=== PATIENT | male | born 1960 | race American Indian/Alaskan Native ===

== ENCOUNTER → 2017-01-22 | Outpatient (CLI) | payer BC ==
[~2017-01-22] MED LIST: IOHEXOL 350 MG/ML 150 ML (OMNIPAQUE 350) VIAL IV ONE; NS 100 ML (IVPB) BAG IV ONE
[2017-01-22 12:22] LABS: BLOOD UREA NITROGEN 12 MG/DL (7-18); BUN/CREATININE RATIO 14; CREATININE SERUM 0.84 MG/DL (0.60-1.30); GFR ESTIMATED > 60
--- NOTE | 2017-01-22 12:49 | Diagnostic Imaging Report ---
PA and lateral views of the chest. INDICATION: Chronic cough and shortness of breath. FINDINGS: There is interstitial thickening seen which could be chronic. No previous studies are available for comparison. There are relatively low lung volumes noted. The heart size is normal. No effusion or pneumothorax. The mediastinum and paula appear unremarkable. IMPRESSION: Low lung volumes with likely chronic interstitial thickening, worse in the lung bases. HRCT evaluation could be helpful. Dictated by: Dictated on workstation # [id number]
--- NOTE | 2017-01-22 13:02 | Diagnostic Imaging Report ---
PROCEDURE: CT angiography of the chest with contrast. TECHNIQUE: Multiple contiguous axial images were obtained through the chest after uneventful bolus administration of intravenous contrast. Reconstructed CTA MIP acquisitions were also performed. INDICATION: Difficulty breathing with shortness of air. FINDINGS: There are no intraluminal pulmonary arterial filling defects, no findings of pulmonary arterial embolus. The thoracic aorta is patent and nonaneurysmal. There is no pleural or pericardial effusion. There are fibrotic changes in the lungs, predominantly in a peripheral and subpleural distribution, most notably in the lung bases but also involving both apices. No jeff alveolar consolidation. No substantial bronchiectasis. No bullous disease, blebs or significant air cysts. The visualized upper abdomen showed a fatty liver with no acute appearing abnormality. IMPRESSION: Negative for PE. There is substantial 5 lobe chronic peripheral interstitial lung disease with basilar and apical subpleural fibrosis and honeycombing. Nonacute patent aorta. Small hiatal hernia and mild hepatic steatosis. Dictated by: Dictated on workstation # [id number]
== END ==
LOC: RAD 11:54
PROVIDERS: ATTEND Nurse Practitioner Family
DX: J84.10 Pulmonary fibrosis, unspecified (principal); J98.4 Other disorders of lung; K44.9 Diaphragmatic hernia without obstruction or gangrene; K76.0 Fatty (change of) liver, not elsewhere classified
CPT/HCPCS: 36415; 71020; 71275; 82565; 84520

== ENCOUNTER → 2017-01-30 | Outpatient (CLI) | payer BC ==
[~2017-01-30] MED LIST changes: -IOHEXOL 350 MG/ML 150 ML (OMNIPAQUE 350) VIAL IV ONE; -NS 100 ML (IVPB) BAG IV ONE; +RT-ALBUTEROL SULF 2.5 MG/3 ML PRE-MIX VIAL INH ONE
== END ==
LOC: RT 12:43
PROVIDERS: ATTEND Nurse Practitioner Family
DX: R05 Cough (principal); R06.02 Shortness of breath
CPT/HCPCS: 94060; 94726; 94729

== ENCOUNTER → 2017-03-05 | Outpatient (CLI) | payer BC ==
[~2017-03-05] MED LIST changes: +ASPI-999 PO; +CLOP75TA28 PO; +FLUT1BLS IH; +HYDR25TA4 PO; +LISI-552 PO; +OMEP40CA36 PO; +ROSU40TA21 PO; +RT-ALBUINH IH; -RT-ALBUTEROL SULF 2.5 MG/3 ML PRE-MIX VIAL INH ONE; +TRAM50TA2 PO
[2017-03-05 12:45] LABS: BASOPHILS % (AUTO) 0 % (0-10); EOSINOPHILS # (AUTO) 0.3 10^3/uL (0.0-0.3); EOSINOPHILS % (AUTO) 4 % (0-10); HEMATOCRIT 46 % (40-54); HEMOGLOBIN 16.4 G/DL (13.3-17.7); LYMPHOCYTES # (AUTO) 1.7 X 10^3 (1.0-4.0); LYMPHOCYTES % (AUTO) 21 % (12-44); MEAN CORPUSCULAR HEMOGLOBIN 33 PG (25-34); MEAN CORPUSCULAR HGB CONC 36 G/DL (32-36); MEAN CORPUSCULAR VOLUME 91 FL (80-99); MONOCYTES # (AUTO) 0.9 X 10^3 (0.0-1.0); MONOCYTES % (AUTO) 12 % (0-12); NEUTROPHILS % (AUTO) 63 % (42-75); PLATELET COUNT 202 10^3/uL (130-400); RED BLOOD COUNT 5.01 10^6/uL (4.35-5.85); RED CELL DISTRIBUTION WIDTH 12.4 % (10.0-14.5); WHITE BLOOD COUNT 7.9 10^3/uL (4.3-11.0)
[2017-03-05 13:05] LABS: ALANINE AMINOTRANSFERASE 23 U/L (0-55); ALBUMIN 4.1 GM/DL (3.2-4.5); ALKALINE PHOSPHATASE 81 U/L (40-136); BILIRUBIN,TOTAL 0.3 MG/DL (0.1-1.0); BUN/CREATININE RATIO 16; CALCIUM 9.3 MG/DL (8.5-10.1); CARBON DIOXIDE 22 MMOL/L (21-32); CHLORIDE 104 MMOL/L (98-107); CREATININE SERUM 0.97 MG/DL (0.60-1.30); GFR ESTIMATED > 60; GLUCOSE 94 MG/DL (70-105); POTASSIUM 4.1 MMOL/L (3.6-5.0); SODIUM 137 MMOL/L (135-145); TOTAL PROTEIN 7.4 GM/DL (6.4-8.2)
== END ==
LOC: LAB 12:01
PROVIDERS: ATTEND Internal Medicine Critical Care Medicine
DX: J84.9 Interstitial pulmonary disease, unspecified (principal); E66.01 Morbid (severe) obesity due to excess calories; G47.33 Obstructive sleep apnea (adult) (pediatric); R06.02 Shortness of breath
CPT/HCPCS: 36415; 80053; 82164; 83880; 85025; 86038; 86430

== ENCOUNTER 2017-03-06 05:36 | Outpatient (CLI) | payer BC ==
[~2017-03-06] VITALS: Ht 160 cm; Wt 112.9 kg
[2017-03-06] MEDS ORDERED: TRAM50TA2 PO (10:57)
[2017-03-06] MEDS ORDERED: ASPI-999 PO (10:57)
[2017-03-06] MEDS ORDERED: CLOP75TA28 PO (10:57)
[2017-03-06] MEDS ORDERED: OMEP40CA36 PO (10:57)
[2017-03-06] MEDS ORDERED: RT-ALBUINH IH (10:57)
[2017-03-06] MEDS ORDERED: LISI-552 PO (10:57)
[2017-03-06] MEDS ORDERED: HYDR25TA4 PO (10:57)
[2017-03-06] MEDS ORDERED: ROSU40TA21 PO (10:57)
[2017-03-06] MEDS ORDERED: FLUT1BLS IH (10:57)
== END 2017-03-06 11:07 ==
LOC: PREOP 05:36
PROVIDERS: ATTEND Internal Medicine Critical Care Medicine
DX: Z01.818 Encounter for other preprocedural examination (principal); J84.9 Interstitial pulmonary disease, unspecified; E66.01 Morbid (severe) obesity due to excess calories; G47.33 Obstructive sleep apnea (adult) (pediatric); R06.02 Shortness of breath

== ENCOUNTER → 2017-05-28 | Outpatient (CLI) | payer BC, OTHER ==
[~2017-05-28] MED LIST changes: -ROSU40TA21 PO; +ROSU40TA22 PO
[2017-05-28 12:18] LABS: ABG OXYGEN SATURATION 98 % (94-100); ABG PCO2 39 MMHG (35-45); ABG PH 7.44 (7.37-7.43); ABG PO2 97 MMHG (79-93); ABG TCO2 27.2 MMOL/L (21.0-31.0)
[2017-05-28 12:19] LABS: ALLENS TEST YES-POS; INSPIRED O2 2; PATIENT TEMP 96.7; VENTILATOR NO
== END ==
LOC: LAB 11:50
PROVIDERS: ATTEND Nurse Practitioner Family
DX: R06.02 Shortness of breath (principal)
CPT/HCPCS: 36600; 82805

== ENCOUNTER 2017-06-01 13:46 | Outpatient (RCR) | payer BC | END 2017-08-30 | disposition home or self-care (01) | LOC: PULM 13:46 | PROVIDERS: ATTEND Nurse Practitioner Family | DX: J84.9 Interstitial pulmonary disease, unspecified (principal); R06.02 Shortness of breath; R09.02 Hypoxemia | CPT/HCPCS: 99211 ==

== ENCOUNTER → 2018-01-19 | Outpatient (CLI) | payer BC ==
[2018-01-19 16:04] LABS: ALANINE AMINOTRANSFERASE 23 U/L (0-55); ALBUMIN 4.3 GM/DL (3.2-4.5); ALKALINE PHOSPHATASE 82 U/L (40-136); BILIRUBIN,TOTAL 0.3 MG/DL (0.1-1.0); BUN/CREATININE RATIO 16; CALCIUM 9.4 MG/DL (8.5-10.1); CARBON DIOXIDE 21 MMOL/L (21-32); CHLORIDE 103 MMOL/L (98-107); CREATININE SERUM 0.97 MG/DL (0.60-1.30); GFR ESTIMATED > 60; GLUCOSE 119 MG/DL (70-105); POTASSIUM 3.7 MMOL/L (3.6-5.0); SODIUM 135 MMOL/L (135-145); TOTAL PROTEIN 7.5 GM/DL (6.4-8.2)
== END ==
LOC: LAB 15:21
PROVIDERS: ATTEND Internal Medicine Critical Care Medicine
DX: J84.9 Interstitial pulmonary disease, unspecified (principal)
CPT/HCPCS: 36415; 80053

== ENCOUNTER → 2018-01-19 | Outpatient (CLI) | payer BC ==
--- NOTE | 2018-01-19 11:48 | Diagnostic Imaging Report ---
EXAMINATION: PA and lateral chest at 11:38 a.m. INDICATION: Shortness of breath. FINDINGS: As on the prior exam of 03/11/2017, there is shallow inspiration. Allowing for this technical factor, the heart size is within normal limits and somewhat less prominent than noted on the prior study. The previous exam did suggest pulmonary congestion. On this exam, there is no evidence for overt failure. There are coarse interstitial densities in both lower lobes, particularly on the left. These could be chronic in nature or may be secondary to mild acute pneumonia/atelectasis. There is no significant pleural effusion identified. The mediastinum is not widened. The osseous structures are intact. IMPRESSION: 1. There are coarse interstitial densities in both lung bases. Whether these are chronic or acute is not certain. Clinical follow-up is recommended. 2. There is no acute cardiopulmonary abnormality noted otherwise. Dictated by: Dictated on workstation # [id number]
== END ==
LOC: RAD 11:00
PROVIDERS: ATTEND Physician Assistant
DX: J98.4 Other disorders of lung (principal); I25.10 Atherosclerotic heart disease of native coronary artery without angina pectoris; I10 Essential (primary) hypertension; E78.2 Mixed hyperlipidemia; G47.33 Obstructive sleep apnea (adult) (pediatric)
CPT/HCPCS: 71046

== ENCOUNTER → 2018-02-24 | Outpatient (CLI) | payer BC ==
[~2018-02-24] MED LIST changes: +RT-ALBUTEROL SULF 2.5 MG/3 ML PRE-MIX VIAL INH ONE
== END ==
LOC: RT 09:23
PROVIDERS: ATTEND Nurse Practitioner Family
DX: J84.9 Interstitial pulmonary disease, unspecified (principal)
CPT/HCPCS: 94060

== ENCOUNTER → 2018-03-31 | Outpatient (CLI) | payer BC ==
[~2018-03-31] MED LIST changes: -RT-ALBUTEROL SULF 2.5 MG/3 ML PRE-MIX VIAL INH ONE
== END ==
LOC: CARD 12:10
PROVIDERS: ATTEND Physician Assistant
DX: I25.10 Atherosclerotic heart disease of native coronary artery without angina pectoris (principal); I10 Essential (primary) hypertension; E78.2 Mixed hyperlipidemia; R06.02 Shortness of breath; G47.33 Obstructive sleep apnea (adult) (pediatric); I07.1 Rheumatic tricuspid insufficiency
CPT/HCPCS: 93306

== ENCOUNTER → 2018-03-31 | Outpatient (CLI) | payer BC ==
--- NOTE | 2018-03-31 14:24 | Diagnostic Imaging Report ---
PROCEDURE: CT chest without contrast. TECHNIQUE: Multiple contiguous axial images were obtained through the chest without the use of intravenous contrast. High-resolution protocol was utilized. INDICATION: Respiratory distress. FINDINGS: The previous CT chest exam performed on 01/22/2017 noted five-lobe chronic peripheral interstitial lung disease with basilar and apical subpleural fibrosis and honeycombing. On this study, the chronic interstitial changes noted previously have progressed. Specifically, there is much greater honeycombing and interstitial fibrosis of both lungs, particularly the upper lobes. There is no area of consolidation that would suggest acute pneumonia/atelectasis superimposed on the underlying chronic pulmonary disease. There is no sign of a pleural effusion either. The cardiomegaly and the coronary artery disease seen previously are again evident and no different. As on the prior study, there are few borderline enlarged pretracheal nodes. These are also again evident and unchanged. The aorta is not abnormally dilated. The thyroid gland where visualized is unremarkable. The sections through the upper abdomen fail to show any sign of an acute abnormality. Bone windows are unremarkable for fracture or for destructive lesion. IMPRESSION: 1. The appearance of the chest has worsened since the prior study as the chronic interstitial lung disease and the honeycombing of both lungs noted on the previous study has progressed. There is no evidence for consolidation to suggest an area of acute pneumonia/atelectasis and there is no sign of pleural effusion. 2. There is cardiomegaly and coronary artery disease. Dictated by: Dictated on workstation # [id number]
== END ==
LOC: RAD 12:13
PROVIDERS: ATTEND Nurse Practitioner Family
DX: J84.9 Interstitial pulmonary disease, unspecified (principal); E66.01 Morbid (severe) obesity due to excess calories; I51.7 Cardiomegaly; I25.10 Atherosclerotic heart disease of native coronary artery without angina pectoris
CPT/HCPCS: 71250

== ENCOUNTER → 2019-01-12 | Outpatient (CLI) | payer BC ==
[~2019-01-12] VITALS: Ht 162 cm; Wt 111.0 kg
[~2019-01-12] MED LIST changes: +CATHETER FLUSH 10 ML SYR IV PRN; +OMEP40CA27 PO; -OMEP40CA36 PO; +REGADENOSON 0.4 MG/5 ML SYR (LEXISCAN) IV ONE; -ROSU40TA22 PO; +ROSU40TA23 PO; -TRAM50TA2 PO; +TRM50T PO
[2019-01-12 13:55] VITALS: BP 117/83
[2019-01-12 13:59] VITALS: BP 159/94
--- NOTE | 2019-01-12 18:22 | STRESS TEST ---
DATE OF SERVICE: 01/12/2019 LEXISCAN MYOVIEW STRESS TEST Baseline heart rate is 100. Baseline blood pressure is 117/83. Baseline EKG is sinus rhythm with no ischemic changes. In summary, the patient was injected with 9.5 mCi of technetium-99 Myoview and the resting images were obtained. Then, the patient received 0.4 mg of Lexiscan followed by 30.0 mCi of technetium-99 Myoview. Throughout the test, there were no EKG changes. The resting and stress images were reviewed and compared in the short axis, horizontal long axis, and vertical long axis views. Review of the images showed good radiotracer uptake with no significant ischemia or infarction. SSS is 3, SDS 1, TID value 1.05. On the gated images, the left ventricle appeared to be normal size with normal contractility. Calculated ejection fraction is 82%. CONCLUSION: 1. The patient tolerated Lexiscan well. 2. No ischemia or infarction on SPECT images. 3. Normal left ventricular size with normal contractility. Calculated ejection fraction is 82%. Job ID: [id number] DocumentID: [id number] Dictated Date: 01/12/2019 17:06:56 Shipping Processor Date: 01/12/2019 18:21:14 Dictated By: EMILIA GLASS MD
== END ==
LOC: CARD 12:46
PROVIDERS: ATTEND Internal Medicine Cardiovascular Disease
DX: I25.10 Atherosclerotic heart disease of native coronary artery without angina pectoris (principal); I10 Essential (primary) hypertension; J84.9 Interstitial pulmonary disease, unspecified
CPT/HCPCS: 78452; 93017

== ENCOUNTER 2019-08-23 17:53 | Emergency (ER) | payer BC ==
[~2019-08-23] VITALS: Ht 167.7 cm; Wt 84.0 kg
[~2019-08-23 17:53] MED LIST changes: -CATHETER FLUSH 10 ML SYR IV PRN; -REGADENOSON 0.4 MG/5 ML SYR (LEXISCAN) IV ONE
--- NOTE | 2019-08-23 17:53 | NUR ---
EMS ARRIVAL WITH CODE BLUE IN PROGRESS 1 EPI BY EMS IV #20 R AC 1755 EPI GIVEN 1756 ATROPINE 1759 ASYSTOLE ON MONITOR 1759 BICARB 1AMB GIVEN 1800 MONITOR ASYSTOLE NO PULSE OR NO RESP 1801 EPI GIVEN 1801 ATROPINE GIVEN 1802 RHYTHM CHECK ASYSTOLE 1802 PEA 1804 NO PULSE ETOCO2 15 1804 TIME OF
[2019-08-23] MEDS ORDERED: EPINEPHrine 0.1 MG/ML 10 ML (HOSPIRA) SYR IJ ONE (18:02)
[2019-08-23] MEDS ORDERED: SODIUM BICARB 8.4% 50 MEQ/50 ML (ABBOTT) SYR INJ ONE (18:02)
[2019-08-23] MEDS ORDERED: ATROPINE INJECTION 1 MG/10 ML SYR (ABBOTT) INJ ONE (18:02)
--- NOTE | 2019-08-23 18:06 | NUR ---
COVID SWAB COMPLETED
--- NOTE | 2019-08-23 18:37 | ED CPR ---
HPI-CPR General Chief Complaint: Code Blue Stated Complaint: UNRESPONSIVE Source of Information: Patient, Old Records History of Present Illness Date Seen by Provider: Aug 23, 2019 Time Seen by Provider: 17:53 Initial Comments PT ARRIVES VIA EMS FROM HOME, IN FULL CARDIOPULMONARY ARREST WITH CPR IN PROGRESS PER , PT HAS HISTORY OF INTERSTITIAL LUNG DISEASE AND HTN. AND CAD WITH STENT X 1 IN 2012 REPORTS THAT HE DID NOT FEEL WELL YESTERDAY, AND FELT REALLY BAD ALL DAY TODAY DID NOT EAT YESTERDAY OR TODAY AND DID NOT HAVE MUCH TO DRINK PT HAS BEEN VERY SHORT OF BREATH ALL DAY AND HAVING CHEST PAIN AND SWEATS ALL DAY TODAY, UNABLE TO LAY FLAT DUE TO DIFFICULTY BREATHING REPORTS THAT HE DID NOT WANT TO COME TO THE HOSPITAL SHE GAVE HIM A DUO NEB TREATMENT BETWEEN 1714 AND 1729, BUT HE ONLY DID HALF OF A TREATMENT HE ASKED THE TO LEAVE THE ROOM AFTER THAT, AND SHE RETURNED AFTER 5 MINUTES AND FOUND HIM WITH HIS EYES ROLLED BACK, AND HIS HAND/FIST TO THE CENTER OF HIS CHEST, AND NOT BREATHING --NO CPR STARTED BY SHE CALLED 911--OFFICER STARTED CPR AT 1735 ON EMS ARRIVAL AT THE SCENE, PT WAS PULSELESS AND APNEIC AND IN ASYSTOLE. CPR WAS CONTINUED EMS INTUBATED THE PT WITH AN I-JEL, AND GAVE 1 DOSE OF EPINEPHRINE PT REMAINS PULSELESS AND APENIC AND IN ASYSTOLE ON ARRIVAL ACLS PROTOCOL CONTINUED ON PT'S ARRIVAL TO ER PT PLACED IN ISOLATION ROOM AND PPE WORN BY ALL STAFF, AND COVID-19 TESTING PERFORMED REPORTS THAT PT DOES NOT WORK, BUT SHE WORKS 2 JOBS, INCLUDING [employer] SHE STATES HE HAS NOT HAD FEVER OR COUGH, AND SHE HAS NOT BEEN ILL. PCP: [facility] IN [place], [place] LEVEL VIAL GRINDER: DR. SANDRA--HAS NOT SEEN IN OVER A YEAR. Allergies and Home Medications Allergies Coded Allergies: No Known Drug Allergies (Unverified , 03/06/17) Home Medications Albuterol Sulfate 1 Puff Puff, 2 PUFF IH Q4H PRN for COUGH, (Reported) 1 PUFF = 90 MCG Aspirin 81 Mg Tab.chew, 81 MG PO DAILY, (Reported) Clopidogrel Bisulfate 75 Mg Tablet, 75 MG PO DAILY, (Reported) Fluticasone/Vilanterol 1 Each Blst.w.dev, 1 EACH IH DAILY, (Reported) Hydrochlorothiazide 25 Mg Tablet, 25 MG PO DAILY, (Reported) Lisinopril 20 Mg Tablet, 20 MG PO DAILY, (Reported) Omeprazole 40 Mg Capsule.dr, 40 MG PO DAILY, (Reported) Rosuvastatin Calcium 40 Mg Tablet, 40 MG PO DAILY, (Reported) Tramadol HCl 50 Mg Tablet, 50 MG PO BID, (Reported) Patient Home Medication List Home Medication List Reviewed: Yes Review of Systems Review of Systems Constitutional: see HPI, diaphoresis Respiratory: See HPI, Orthopnea, Shortness of Air Cardiovascular: See HPI, Chest Pain Gastrointestinal: Poor Appetite Past Ukxbsir-Ufelxt-Exgzfg Hx Past Med/Social Hx: Reviewed and Corrections made Patient Social History Recent Hopitalizations: No Immunizations Up To Date Date of Influenza Vaccine: Nov 24, 2016 Seasonal Allergies Seasonal Allergies: No Past Medical History Surgeries: Yes (BRONCHOSCOPY 02/2017; CATH WITH STENT X 1 TO LAD 2012) Cardiac, Coronary Stent Respiratory: Yes (INTERSTITIAL LUNG DISEASE) Sleep Apnea Currently Using CPAP: No Cardiac: Yes (CARDIAC CATH-STSENT X 1 TO LAD 2012) Coronary Artery Disease, High Cholesterol, Hypertension Reproductive Disorders: No Sexually Transmitted Disease: No HIV/AIDS: No Gastrointestinal: Yes Gastroesophageal Reflux Musculoskeletal: Yes Chronic Back Pain Endocrine: Yes (OBESITY) Loss of Vision: Bilateral Hearing Impairment: Denies Adverse Reaction/Blood Tranf: No (N/A) Physical Exam Vital Signs Vital Signs - First Documented 08/23/19 17:53 Pulse 0 Resp 0 B/P (MAP) 0/0 (0) Pulse Ox 0 Capillary Refill : Height, Weight, BMI Height: 5'3.00" Weight: 249lbs. 0.0oz. 112.405212ml; 42.29 BMI Method: General Appearance: Obese, Severe Distress, Other (PT IN FULL CARDIOPULMONARY ARREST, CPR IN PROGRESS AND PT HAS BEEN INTUBATED BY EMS PRIOR TO ARRIVAL. ) Respiratory: Other (APENIC, LUNG SOUNDS EQUAL WITH BAGGING. NO RALES OR RHONCHI NOTED) Cardiovascular: Other (PULSELESS) Extremity: No Pedal Edema Neurologic/Psychiatric: Other (UNRESPONSIVE) Skin: Cool, Cyanosis, Pallor Progress/Results/Core Measures Results/Orders Lab Results Laboratory Tests Test 08/23/19 18:08 Range/Units My Orders Orders - NATALY COVARRUBIAS DO Coronavirus Sars-Cov-2 So 2018 (08/23/19 18:16) Vital Signs/I&O 08/23/19 17:53 Pulse 0 Resp 0 B/P (MAP) 0/0 (0) Pulse Ox 0 Critical Care Note Critical Care Start Time: 17:53 Stop Time: 18:04 Date of : Aug 23, 2019 Time of : 18:04 Progress SEE NURSING NOTES FOR DETAILS PT GIVEN EPINEPHRINE X 3 DOSES, ATROPINE X 3 DOSES AND 1 AMP OF BICARB--NO RETUR N OF PULSE OR SPONTANEOUS RESPIRATIONS, HAD VERY BRIEF EPISODE OF PEA, OTHERWISE REMAINED IN ASYSTOLE. Departure Communication (Admissions) 1817--SPOKE WITH DR. SANDRA AND INFORMED HIM OF PT'S , HE DEFERS SIGNING DE ATH CERTIFICATE TO SOMEONE AT [facility] 1819-- IS HERE. BOTH DR. WILSON AND I SPOKE WITH HER, HE SPOKE WITH HER ON THE PHONE BEFORE SHE ARRIVED. DOES NOT WANT AN AUTOPSY. PT WANTS TO BE CREMATED, WITH [facility] THEY HAVE NO FAMILY HERE. HIS SIBLINGS LIVE [address] AWAY AND ARE ON THEIR [address] HERE. 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 1844--PASTORAL CARE HERE 1944--SPOKE WITH AND WITH [employer]. DOES NOT WANT ANY ORGAN DONATION AND DOES NOT WISH TO SPEAK WITH [employer]. RN WILL CONTACT [facility]. Impression Primary Impression: Cardiopulmonary arrest Additional Impression: COVID P.U.I. Disposition: 20 Condition: Departure-Patient Inst. Referrals: NO,LOCAL PHYSICIAN (PCP/Family) Primary Care Physician NATALY COVARRUBIAS DO Aug 23, 2019 18:37
--- NOTE | 2019-08-23 19:00 | NUR ---
REPORT TO CORNELIUS GARCIA
[2019-08-23 20:31] VITALS: BP 0/0
== END 2019-08-23 20:32 | disposition expired ==
LOC: EDUNIT# 17:54 → ER 18:01
DX: I46.9 Cardiac arrest, cause unspecified (principal); I10 Essential (primary) hypertension; E78.00 Pure hypercholesterolemia, unspecified; K21.9 Gastro-esophageal reflux disease without esophagitis; I25.10 Atherosclerotic heart disease of native coronary artery without angina pectoris; G89.29 Other chronic pain; M54.9 Dorsalgia, unspecified; E66.9 Obesity, unspecified; Z68.41 Body mass index [BMI] 40.0-44.9, adult; Z95.5 Presence of coronary angioplasty implant and graft; Z79.82 Long term (current) use of aspirin; Z79.891 Long term (current) use of opiate analgesic; Z20.828 Contact with and (suspected) exposure to other viral communicable diseases; Z79.02 Long term (current) use of antithrombotics/antiplatelets; Z79.51 Long term (current) use of inhaled steroids
CPT/HCPCS: 99282; U0002; 87635